=== PATIENT | male | born 1990 | race Caucasian/White ===

== ENCOUNTER 2021-09-15 14:58 | Emergency (ER) | payer OTHER ==
[2021-09-15 16:43] LABS: HEMOGLOBIN 13.6 gm/dl (14.0-17.5); RED BLOOD COUNT 4.4 M/UL (4.20-5.50); WHITE BLOOD COUNT 12.3 K/UL (4.5-11.0)
[2021-09-15 17:10] LABS: BUN/CREATININE RATIO 15 (0-10)
== END 2021-09-15 20:18 | disposition home or self-care (01) ==
LOC: ER1 14:58
PROVIDERS: Physician Assistant
DX: R53.1 Weakness (principal); R51.9 Headache, unspecified; M79.10 Myalgia, unspecified site; R07.9 Chest pain, unspecified; Z20.822 Contact with and (suspected) exposure to COVID-19; J02.9 Acute pharyngitis, unspecified; R11.0 Nausea; Z90.89 Acquired absence of other organs; F17.200 Nicotine dependence, unspecified, uncomplicated
CPT/HCPCS: 0240U; 71045; 80053; 82550; 82553; 83605; 84484; 85025; 85379; 87040; 87081; 87880; 93005; 99285